=== PATIENT | female | born 1945 | race Caucasian/White ===

== ENCOUNTER → 2021-08-16 | Day surgery (SDC) | payer MEDICARE ==
[~2021-08-16] MED LIST: ALIVE ONCE DAI1 EACH PO; ASPIRIN81 MG PO; ATORVASTATIN CA10 MG PO; BUSPIRONE HCL10 MG PO; CALCIUM PO; CHLORTHALIDONE25 MG PO; COZAAR100 MG PO; FENTANYL CITRATE/PF 100MCG/2 ML INJ ONE; FISH OIL 1,0001 EAC2 PO; GLUCOSAMINE &1 EACH PO; HYDROCHLOROTH12.5 MG PO; HYDROCODON-ACE1 EA12 PO; KLOR-CON M2020 MEQ PO; LEVAQUIN750 MG PO; LEVOTHROID112 MCG PO; LEVOTHROID25 MCG; MIDAZOLAM HCL 2 MG/2 ML VIAL ONE; MOTRIN800 M1 PO; NORVASC2.5 MG PO; OR PHACO EYE KIT ONE; PREOP PHACO EYE KIT ONE; PROBIOTIC & AC1 EACH PO; TRAZODONE HCL50 MG PO; ULTRAM50 MG PO; VERAPAMIL ER P100 MG PO; VERAPAMIL ER120 M1; VIMOVO 500-201 EACH; VIMOVO 500-201 EACH PO; VITAMIN B12-FO1 EACH PO; VITAMIN B122500 MCG PO; VITAMIN C500 MG PO; VITAMIN D3250 MCG PO; ZOFRAN ODT4 MG PO; [UNRECOGNIZED DRUG - OTHER] PO
[2021-08-16 10:50] VITALS: BP 118/62
== END | disposition home or self-care (01) ==
LOC: OR 08:04
PROVIDERS: ATTEND Ophthalmology
DX: H25.11 Age-related nuclear cataract, right eye (principal); I10 Essential (primary) hypertension; E78.5 Hyperlipidemia, unspecified; R00.2 Palpitations; E03.9 Hypothyroidism, unspecified; K44.9 Diaphragmatic hernia without obstruction or gangrene; Z88.6 Allergy status to analgesic agent; Z01.812 Encounter for preprocedural laboratory examination; Z20.822 Contact with and (suspected) exposure to COVID-19; Z79.82 Long term (current) use of aspirin; Z86.16 Personal history of COVID-19
CPT/HCPCS: 66984; J2250; J3010; U0002

== ENCOUNTER → 2021-08-30 | Day surgery (SDC) | payer MEDICARE ==
[~2021-08-30] MED LIST changes: -FENTANYL CITRATE/PF 100MCG/2 ML INJ ONE; -MIDAZOLAM HCL 2 MG/2 ML VIAL ONE
== END | disposition home or self-care (01) ==
LOC: OR 07:51
PROVIDERS: ATTEND Ophthalmology
DX: H25.12 Age-related nuclear cataract, left eye (principal); Z88.5 Allergy status to narcotic agent; K44.9 Diaphragmatic hernia without obstruction or gangrene; Z01.812 Encounter for preprocedural laboratory examination; Z20.822 Contact with and (suspected) exposure to COVID-19
CPT/HCPCS: 66984; U0002

== ENCOUNTER 2023-08-17 12:37 | Emergency (ER) | payer OTHER, MEDICARE ==
[~2023-08-17] VITALS: Ht 160 cm; Wt 68.0 kg
[~2023-08-17 12:37] MED LIST changes: -OR PHACO EYE KIT ONE; -PREOP PHACO EYE KIT ONE
[2023-08-17 12:51] VITALS: O2SAT 98
[2023-08-17] MEDS ORDERED: ACETAMINOPHEN 325 MG TAB PO ONE (13:00)
== END 2023-08-17 15:58 | disposition home or self-care (01) ==
LOC: ER 12:50
DX: S00.83XA Contusion of other part of head, initial encounter (principal); W01.0XXA Fall on same level from slipping, tripping and stumbling without subsequent striking against object, initial encounter; Y93.01 Activity, walking, marching and hiking; Y92.89 Other specified places as the place of occurrence of the external cause; E03.9 Hypothyroidism, unspecified
CPT/HCPCS: 70450; 72125; 99283